=== PATIENT | female | born 1985 | race African-American/Black ===

== ENCOUNTER 2019-12-04 10:26 | Outpatient (CLI) | payer MEDICAID ==
--- NOTE | 2019-12-04 11:28 | ULT ---
Exam: Transabdominal and endovaginal pelvic ultrasound HISTORY:Pelvic pain COMPARISON: None TECHNIQUE: Transabdominal and endovaginal imaging of the pelvis is performed. Ovaries are interrogate d with grayscale, color flow, Doppler imaging and spectral wave form analysis FINDINGS: Uterus: Solid echotexture mass occupying the majority the myometrium measuring 4.7 x 4.6 x 5.6 cm com patible with a large uterine leiomyoma. Uterus measurin.0 x 7.0 x 7.6 cm. Endometrium: Cannot adequately be assessed due to large myometrial mass Endometrium diameter: Not applicable Free fluid: None Right ovary: Normal echotexture Right ovary measurement: 1.7 x 1.2 x 2.3 cm Left ovary: Normal echotexture. Left ovary measurements: 1.8 x 1.6 x 1.3 cm Ovarian Doppler: There is vascular flow to the left and right ovary. IMPRESSION: 1. Solid echotexture masses involving the uterine myometrium, suggesting a large uterine leiomyoma. B gerald interrogation with pelvic MRI and MECHANIC'S ASSISTANT consultation is recommended.
== END 2019-12-04 10:27 | disposition home or self-care (01) ==
LOC: BICULT 10:26
PROVIDERS: ATTEND Nurse Practitioner Women's Health
DX: R10.2 Pelvic and perineal pain (principal); R93.89 Abnormal findings on diagnostic imaging of other specified body structures
CPT/HCPCS: 76856